=== PATIENT | female | born 1985 | race Caucasian/White ===

== ENCOUNTER 2021-02-22 00:41 | Emergency (ER) | payer SELFPAY ==
[~2021-02-22] VITALS: Ht 160 cm; Wt 59.1 kg
[2021-02-22 01:31] VITALS: BP 111/76; PULSE 81; TEMP 98.2
[2021-02-22 01:44] LABS: COLLECTION METHOD CLEAN CATCH
[2021-02-22 01:52] LABS: MUCOUS Present /lpf; PH 5 (5-8); URINE APPEARANCE Hazy; URINE BACTERIA Rare /hpf; URINE BILIRUBIN Negative (NEGATIVE); URINE BLOOD 1+ (NEGATIVE); URINE COLOR Yellow; URINE GLUCOSE Negative (NEGATIVE); URINE KETONE Trace (NEGATIVE); URINE LEUKOCYTE ESTERASE 1+ (NEGATIVE); URINE NITRATE Positive (NEGATIVE); URINE PROTEIN(semi-quant) Negative (NEGATIVE)
== END 2021-02-22 04:33 | disposition left against medical advice (07) ==
LOC: COL.ER 00:41
PROVIDERS: Emergency Medicine
DX: R10.31 Right lower quadrant pain (principal); Z32.02 Encounter for pregnancy test, result negative